=== PATIENT | male | born 1965 | race Two or more races ===

== ENCOUNTER 2019-05-27 01:12 | Emergency (ER) | payer OTHER ==
[~2019-05-27] VITALS: Ht 172.7 cm; Wt 79.4 kg
[2019-05-27 01:21] VITALS: BP 147/94
--- NOTE | 2019-05-27 01:21 | NUR ---
ED Nurse Note: Walk-in patient presents with complaints of finger injury at work. Patient is awake alert and not actively bleeding. Will continue to monitor.
[2019-05-27] MEDS ORDERED: Tetanus/Diptheria/Pertussis IM ONE (01:30)
[2019-05-27] MEDS ORDERED: Lidocaine 1% Plain 30 ml INJ ONE (01:30)
--- NOTE | 2019-05-27 01:54 | Emergency Room Report ---
History of Present Illness General Chief Complaint: Laceration Source: Patient Present Illness HPI 53-year-old male presents with laceration to his left pinky at the tip, patient states he was washing dishes and received a cut he endorses sharp pain aggravated with movement alleviated with rest, severity is mild, he does not remember when his last Tdap was patient presents for evaluation Allergies: Coded Allergies: No Known Allergies (Unverified , 05/27/19) Patient History Past Medical History: see triage record Reviewed Nursing Documentation: PMH: Agreed; PSxH: Agreed Nursing Documentation-PMH Past Medical History: No Stated History Review of Systems All Other Systems: negative except mentioned in HPI Physical Exam Vital Signs Date Time Temp Pulse Resp B/P (MAP) Pulse Ox O2 Delivery O2 Flow Rate FiO2 05/27/19 01:21 98.1 76 18 147/94 (111) 95 Room Air Sp02 EP Interpretation: reviewed, normal General Appearance: well appearing, no apparent distress, alert Head: normocephalic, atraumatic Eyes: bilateral eye PERRL, bilateral eye EOMI ENT: uvula midline, moist mucus membranes Neck: supple, thyroid normal, supple/symm/no masses Respiratory: no respiratory distress Musculoskeletal: other - Left upper extremity: 2+ radial pulses, cap refill less than 3 seconds, no overt fracture, patient with a laceration with partial avulsion of the skin distally, laceration measures approximately 1.5 cm circumferential with blood no exposed tendon, isolation of DIP intact. Neurologic: alert, oriented x3 Psychiatric: mood/affect normal Skin: no rash, warm/dry Procedures Laceration/Wound Repair Laceration/Wound Repair : Consent: Emergent Wound Location: upper extremity - Digit 5 right hand Wound's Depth, Shape: stellate Wound Length (cm): 1 Wound Explored: clean Irrigated w/ Saline (ccs): 500 Betadine Prep?: Yes Anesthesia: 1% Lidocaine - Finger block Volume Anesthetic (ccs): 5 Wound Debrided: None Wound Repaired With: sutures Suture Size/Type: 5:0 Number of Sutures: 4 Layer Closure?: Yes Sterile Dressing Applied?: Yes Splint Applied?: No Sling Applied?: No Patient Tolerated: Well Complications: None Medical Decision Making Diagnostic Impression: Primary Impression: Laceration of finger of right hand Qualified Codes: S61.216A - Laceration without foreign body of right little finger without damage to nail, initial encounter ER Course 53-year-old male presents with laceration to the right little finger, sutures were placed observable, could not secure the entire flap to the finger, used the flap as a protective cover, patient will require 7 days for wound to heal, patient counseled not to wash dishes for 7 days, Tdap was given antibiotics were given disposition home with return precautions follow-up in 7 days for wound check. Other X-Ray Diagnostic Results Other X-Ray Diagnostic Results : X-Ray ordered: left hand # of Views/Limited Vs Complete: 3 View Indication: Pain EP Interpretation: Yes Interpretation: no fractures Impression: No acute disease Electronically Signed by: Dylan Riddle MD Last Vital Signs Date Time Temp Pulse Resp B/P (MAP) Pulse Ox O2 Delivery O2 Flow Rate FiO2 05/27/19 01:21 98.1 76 18 147/94 (111) 95 Room Air Disposition: HOME, SELF-CARE Condition: Stable Scripts Cephalexin* (CEPHALEXIN*) 500 Mg Tablet 500 MG ORAL EVERY 6 HOURS for 7 Days, #28 CAP Prov: Dylan Riddle MD 05/27/19 [facility]: [facility] Patient Instructions: Laceration Care, Adult, Sutured Wound Care, [id number] , Wound Check Additional Instructions: The patient was provided with discharge instructions, notified to follow-up with a primary care doctor and or specialist in the next 24-48 hours, and to return to the ED if they have worsening of their symptoms. Please note that this report is being documented using [employer] technology. This can lead to erroneous entry secondary to incorrect interpretation by the dictating instrument. FOLLOW-UP FOR WOUND CHECK IN 7 DAYS PLEASE DO NOT WASH DISHES FOR 7 DAYS Dylan Riddle MD May 27, 2019 01:54
[2019-05-27] MEDS ORDERED: CEPHALEXIN500 M1 ORAL (01:56)
--- NOTE | 2019-05-27 02:30 | NUR ---
ED Nurse Note: Patient tolerated sutures well, Dressing applied without complication. Will continue to monitor.
[2019-05-27] MEDS ORDERED: ACETAMINOPHEN500 M5 ORAL (02:32)
[2019-05-27] MEDS ORDERED: Cephalexin 500mg cap ORAL ONE (02:45)
[2019-05-27] MEDS ORDERED: Acetaminophen 500mg (ES) tab ORAL ONE (02:45)
--- NOTE | 2019-05-27 02:53 | NUR ---
ED Nurse Note: Patient cleared for discharge. Patients employer will not return to pick patient up so tranportation will be provided to his residence. Patient ID band was removed Patient is iin waiting room awaiting cab arrival .
[2019-05-27 03:00] VITALS: BP 147/94
--- NOTE | 2019-05-27 03:00 | NUR ---
ED Nurse Note: Patient departed with all belongings via taxi to home.
--- NOTE | 2019-05-27 12:17 | Diagnostic Imaging Report ---
Indication: Laceration right fifth finger from kitchen knife Technique: 3 views right hand Comparison: none Findings: No acute fractures. No dislocations. The joint spaces are preserved. No radiopaque foreign body Impression: Negative
== END 2019-05-27 03:00 | disposition home or self-care (01) ==
LOC: EMR 01:41
DX: S61.216A Laceration without foreign body of right little finger without damage to nail, initial encounter (principal); Y93.G1 Activity, food preparation and clean up; Y92.89 Other specified places as the place of occurrence of the external cause; Y99.0 Civilian activity done for income or pay; Z23 Encounter for immunization
CPT/HCPCS: 12001; 73130; 90471; 90715; 99283; J2001

== ENCOUNTER 2019-06-03 12:35 | Emergency (ER) | payer OTHER ==
[~2019-06-03] VITALS: Ht 172.7 cm; Wt 80.7 kg
[~2019-06-03 12:35] MED LIST: ACETAMINOPHEN500 M5 ORAL; CEPHALEXIN500 M1 ORAL
[2019-06-03 12:40] VITALS: BP 146/74
--- NOTE | 2019-06-03 12:40 | NUR ---
ED Nurse Note: Patient walked in to ER from home due to stiches removal on Rt 5th digit on hand. the site clean and intact. Patient alert and oriented x4 and ambulatory. skin clean and intact. calm and cooperative. no acute distress noted at this time.
--- NOTE | 2019-06-03 12:45 | NUR ---
ED Nurse Note: stitches removed at bedside by SRUTHI
--- NOTE | 2019-06-03 12:49 | Emergency Room Report ---
History of Present Illness General Chief Complaint: Wound Recheck/Suture Removal Source: Patient Present Illness HPI 53-year-old male 7 days prior to arrival injured his right pinky finger, patient presented for wound recheck no fever no chills, no other complaints. Patient does endorse an achy pain worsened with movement alleviated with rest mild severity Allergies: Coded Allergies: No Known Allergies (Unverified , 05/27/19) Patient History Past Medical History: see triage record Reviewed Nursing Documentation: PMH: Agreed; PSxH: Agreed Nursing Documentation-PMH Past Medical History: No Stated History Review of Systems All Other Systems: negative except mentioned in HPI Physical Exam Vital Signs Date Time Temp Pulse Resp B/P (MAP) Pulse Ox O2 Delivery O2 Flow Rate FiO2 06/03/19 12:40 98.1 87 17 146/74 (98) 98 Room Air Sp02 EP Interpretation: reviewed, normal General Appearance: well appearing, no apparent distress, alert Head: normocephalic, atraumatic Eyes: bilateral eye PERRL, bilateral eye EOMI ENT: uvula midline, moist mucus membranes Neck: supple, thyroid normal, supple/symm/no masses Musculoskeletal: normal inspection, other - Right fifth digit clean dry intact, Neurologic: alert, oriented x3 Psychiatric: mood/affect normal Skin: no rash, warm/dry Medical Decision Making Diagnostic Impression: Primary Impression: Encounter for wound re-check ER Course Patient presents for wound recheck, sutures removed disposition home with return precautions Last Vital Signs Date Time Temp Pulse Resp B/P (MAP) Pulse Ox O2 Delivery O2 Flow Rate FiO2 06/03/19 12:40 98.1 87 17 146/74 (98) 98 Room Air Disposition: HOME, SELF-CARE Condition: Stable Referrals: [facility] Departure Forms: Return to Work Return to Work Date: Jun 11, 2019 Patient Instructions: Wound Check Additional Instructions: The patient was provided with discharge instructions, notified to follow-up with a primary care doctor and or specialist in the next 24-48 hours, and to return to the ED if they have worsening of their symptoms. Please note that this report is being documented using [employer] technology. This can lead to erroneous entry secondary to incorrect interpretation by the dictating instrument. Dylan Riddle MD Jun 03, 2019 12:48
[2019-06-03 12:54] VITALS: BP 135/77
--- NOTE | 2019-06-03 12:56 | NUR ---
ED Nurse Note: Pt cleared by health care Provider for discharge after stiches removed. no s/s of infection noted. DC instructions/prescription was given and explained to pt and verbalized understanding of teachings. All medical deviecs such as ID band removed. Pt is AAO x4, ambulatory and left with all personal belongings.
== END 2019-06-03 14:00 | disposition home or self-care (01) ==
LOC: EMR 13:49
DX: S61.216D Laceration without foreign body of right little finger without damage to nail, subsequent encounter (principal); Z48.02 Encounter for removal of sutures; X58.XXXD Exposure to other specified factors, subsequent encounter
CPT/HCPCS: 99282